=== PATIENT | female | born 1945 | race Caucasian/White ===

== ENCOUNTER → 2016-11-10 | Outpatient (REF) | payer BC, MEDICARE ==
[2016-11-10 18:47] LABS: IMMUNOGLOBULIN G 1050 MG/DL (681-1648); IMMUNOGLOBULIN M 82.5 MG/DL (40-230)
[2016-11-13 14:15] LABS: %CD3+CD4+CD8- 64.9 % (Not Estab.); %CD3+CD4-CD8+ 12.4 % (Not Estab.); %CD3+CD4-CD8- 0.2 % (Not Estab.); ABS CD3+CD4+CD8+ 30 /uL (Not Estab.); ABS CD3+CD4+CD8- 974 /uL (Not Estab.); ABS CD3+CD4-CD8+ 186 /uL (Not Estab.); ABS CD3+CD4-CD8- 3 /uL (Not Estab.); CD4/CD8 NYSDOH RATIO 5.23 (Not Estab.); ERYTHROCYTE PROTOPORPHYRIN 29 ug/dL (0-34); Eosinophils 2 % (.); HCT 38.9 % (34.0-46.6); HGB 13.1 g/dL (11.1-15.9); Lyme Disease IgG/IgM Antibodie <0.91 ISR (0.00-0.90); Lyme Disease IgM Ab Quantitati <0.80 index (0.00-0.79); Monocytes 5 % (.); Neutrophils 65 % (.); WBC 5.5 x10E3/uL (3.4-10.8); WEST NILE VIRUS ANTIBODY IgM Negative (Negative); ZINC PROTOPORPHYRIN 32 ug/dL (0-38)
[2016-11-30 10:16] LABS: ENCPHALOPATHY INTERPRETATION SEE SEPARATE REPORT
== END ==
LOC: M SFHCPLAZ 12:01
PROVIDERS: ATTEND Internal Medicine Infectious Disease
DX: G04.90 Encephalitis and encephalomyelitis, unspecified (principal)
CPT/HCPCS: 36415; 82784; 83519; 84202; 86140; 86255; 86256; 86341; 86360; 86617; 86695; 86696; 86788; 86789; G0463

== ENCOUNTER 2017-11-19 11:47 | Emergency (ER) | payer MEDICARE | END 2017-11-19 14:38 | disposition home or self-care (01) | LOC: M ED 11:47 | DX: S00.90XA Unspecified superficial injury of unspecified part of head, initial encounter (principal); W10.9XXA Fall (on) (from) unspecified stairs and steps, initial encounter; Y92.9 Unspecified place or not applicable; Y93.9 Activity, unspecified; Y99.9 Unspecified external cause status; M47.812 Spondylosis without myelopathy or radiculopathy, cervical region; M47.813 Spondylosis without myelopathy or radiculopathy, cervicothoracic region; K51.90 Ulcerative colitis, unspecified, without complications; Z79.82 Long term (current) use of aspirin; Z79.899 Other long term (current) drug therapy; Z88.8 Allergy status to other drugs, medicaments and biological substances | CPT/HCPCS: 70450 ==